=== PATIENT | female | born 1995 | race Two or more races ===

== ENCOUNTER 2023-07-21 13:14 | Emergency (ER) | payer OTHER ==
[~2023-07-21] VITALS: Ht 152.4 cm; Wt 49.9 kg
[2023-07-21 14:02] LABS: URINE APPEARANCE Clear; URINE BILIRRUBIN Negative (NEGATIVE); URINE BLOOD Negative; URINE COLOR Yellow; URINE GLUCOSE Negative (NEGATIVE); URINE LEUKOCYTE Negative; URINE NITRATE Negative; URINE PROTEIN Negative (NEGATIVE)
[2023-07-21 14:05] LABS: URINE BACTERIA 2755.6 uL (0.0-1933); URINE EPITHELIAL CELLS 66.9 uL (0.0-38.8); URINE RBC 14.6 uL (0.0-20.8); URINE WBC 4.3 uL (0.0-23.2)
== END 2023-07-21 14:46 | disposition home or self-care (01) ==
LOC: ER 13:14
DX: R30.0 Dysuria (principal)